=== PATIENT | male | born 1985 | race Hispanic/Latino ===

== ENCOUNTER 2017-10-10 18:49 | Emergency (ER) | payer SELFPAY ==
--- NOTE | 2017-10-10 19:35 | RAD ---
AP VIEW OF THE CHEST: 10/10/17 INDICATION: Cough and chest pain. FINDINGS: The lungs are clear. The cardiomediastinal silhouette is within normal limits. No acute osseous abnor mality is evident. IMPRESSION: No acute cardiopulmonary process. POS: [facility]
[2017-10-10] MEDS ORDERED: Nitroglycerin 0.4 MG TAB (25 Tab Bottle) ONE (19:52)
[2017-10-10 20:09] LABS: #Eosinphils 0.2 thou/uL (0.0-0.7); #Monocytes 0.7 thou/uL (0.11-0.59); #Neutrophils 6.6 thou/uL (1.40-6.50); %Basophils 0.3 % (0.0-1.0); %Eosinophils 1.5 % (0.0-10.0); %Lymphocytes 28.4 % (21.0-51.0); %Monocytes 6.8 % (0.0-10.0); Mean Corpuscular HGB CONC 34.4 g/dL (32.0-36.0); Mean Corpuscular Hemoglobin 27.9 pg (27.0-31.0); Mean Corpuscular Volume 81.3 fl (80.0-94.0); Mean Platelet Volume 7.3 fL (7.4-10.4); Platelet Count 266 thou/uL (130-400); RBC Distribution Width 12.7 % (11.5-14.5); Red Blood Cell (RBC) Count 5.72 mill/uL (4.70-6.10); White Blood Cell (WBC) Count 10.5 thou/uL (4.8-10.8)
[2017-10-10] MEDS ORDERED: Ketorolac Tromethamine 30 MG/ML VIAL ONE (20:10)
[2017-10-10 20:24] LABS: ALT (SGPT) 42 U/L (8-55); AST (SGOT) 19 U/L (5-34); Albumin 4.4 g/dL (3.5-5.0); Alkaline Phosphatase 67 U/L (40-150); Anion Gap 12 mmol/L (10-20); BUN (Urea Nitrogen) 15 mg/dL (8.9-20.6); Bilirubin, Total 0.2 mg/dL (0.2-1.2); CK (CPK) 186 U/L (30-200); Calc. Creatinine Clearance 0 mL/min (70-130); Calcium 9.5 mg/dL (7.8-10.44); Carbon Dioxide 26 mmol/L (22-29); Chloride 104 mmol/L (98-107); Estimated GFR-MDRD Greater than 90; Globulin 3.3 g/dL (2.4-3.5); Glucose 105 mg/dL (70-105); Potassium 4.1 mmol/L (3.5-5.1); Protein, Total 7.7 g/dL (6.0-8.3); Sodium 138 mmol/L (136-145)
[2017-10-10 20:28] LABS: CKMB 2.2 ng/mL (0-6.6); Troponin I Less than 0.010 ng/mL (< 0.028)
== END 2017-10-10 21:57 | disposition home or self-care (01) ==
LOC: ERS 18:49
DX: R07.81 Pleurodynia (principal); F17.210 Nicotine dependence, cigarettes, uncomplicated
CPT/HCPCS: 71045; 80053; 82553; 83880; 84484; 85025; 85379; 93005; 96361; 96374; J1885

== ENCOUNTER 2018-06-21 10:49 | Emergency (ER) | payer SELFPAY | END 2018-06-21 13:00 | disposition home or self-care (01) | LOC: ERS 10:49 | DX: B34.9 Viral infection, unspecified (principal); F17.210 Nicotine dependence, cigarettes, uncomplicated | CPT/HCPCS: 87081; 87430; 87804; 99283 ==

== ENCOUNTER 2019-04-03 06:51 | Emergency (ER) | payer SELFPAY ==
[2019-04-03] MEDS ORDERED: Dexamethasone 10 MG/ML VIAL ONE (07:37)
== END 2019-04-03 08:44 | disposition home or self-care (01) ==
LOC: ERS 06:51
DX: J32.9 Chronic sinusitis, unspecified (principal); H66.92 Otitis media, unspecified, left ear; F17.210 Nicotine dependence, cigarettes, uncomplicated
CPT/HCPCS: 99283; J1100

== ENCOUNTER 2020-03-04 09:17 | Emergency (ER) | payer SELFPAY ==
[2020-03-04] MEDS ORDERED: Boostrix 0.5 ML VIAL ONE (09:33)
[2020-03-04] MEDS ORDERED: Bupivacaine 0.5% 10 ML VIAL ONE (09:34)
[2020-03-04] MEDS ORDERED: Bacitracin 1 PK ONE (10:06)
[2020-03-04] MEDS ORDERED: Lidocaine 1% PF 5 ML VIAL ONE (10:06)
--- NOTE | 2020-03-04 10:09 | RAD ---
Exam: XR Finger(s) Lt Min 2 View HISTORY: Injury to left thumb. Patient cut left thumb with knife. COMPARISON: None FINDINGS: No acute fracture, dislocation, or other acute osseous abnormality is identified. There is slight irr egularity along the volar aspect of the distal phalanx of the thumb which may be developmental in origin. There is soft tissue irregularity related to laceration involving the distal aspect of the thumb soft tissues. No radiopaque foreign body is seen. IMPRESSION: Laceration involving the distal aspect of the thumb soft tissues without evidence of a fracture.
[2020-03-04] MEDS ORDERED: Sulfameth/Trimethoprim DS 800-160mg TAB ONE (10:41)
== END 2020-03-04 11:08 | disposition home or self-care (01) ==
LOC: ERS 09:17
DX: S61.012A Laceration without foreign body of left thumb without damage to nail, initial encounter (principal); F17.210 Nicotine dependence, cigarettes, uncomplicated; W26.0XXA Contact with knife, initial encounter
CPT/HCPCS: 12002; 90471; 90715; J3490

== ENCOUNTER 2022-03-13 10:02 | Emergency (ER) | payer OTHER, SELFPAY ==
[2022-03-13] MEDS ORDERED: Acetaminophen 500 MG TAB ONE (13:04)
[2022-03-13] MEDS ORDERED: Ibuprofen 800 MG TAB ONE (13:04)
== END 2022-03-13 14:30 | disposition home or self-care (01) ==
LOC: ERS 10:02
DX: S62.616A Displaced fracture of proximal phalanx of right little finger, initial encounter for closed fracture (principal); S80.02XA Contusion of left knee, initial encounter; S50.311A Abrasion of right elbow, initial encounter; M25.511 Pain in right shoulder; F17.210 Nicotine dependence, cigarettes, uncomplicated; W01.0XXA Fall on same level from slipping, tripping and stumbling without subsequent striking against object, initial encounter
CPT/HCPCS: 29125

== ENCOUNTER 2022-05-02 06:19 | Emergency (ER) | payer SELFPAY | END 2022-05-02 07:15 | disposition home or self-care (01) | LOC: ERS 06:19 | DX: B34.9 Viral infection, unspecified (principal); H66.93 Otitis media, unspecified, bilateral | CPT/HCPCS: 99282 ==

== ENCOUNTER 2023-03-03 13:04 | Emergency (ER) | payer SELFPAY ==
[2023-03-03] MEDS ORDERED: Bicillin LA 1.2 MILLION UNITS/2 ML SYRINGE ONE (14:55)
[2023-03-03] MEDS ORDERED: Ketorolac Tromethamine 30 MG/ML VIAL ONE ×2 (14:55→15:01)
[2023-03-03] MEDS ORDERED: Dexamethasone 4 mg/ml Vial ONE (14:57)
[2023-03-03] MEDS ORDERED: Acetaminophen 500 MG TAB ONE (15:13)
[2023-03-03 15:21] LABS: SARS-CoV-2 NAA Rapid Test Not Detected (NotDetected)
== END 2023-03-03 15:17 | disposition home or self-care (01) ==
LOC: ERS 13:04
DX: J02.0 Streptococcal pharyngitis (principal); F17.210 Nicotine dependence, cigarettes, uncomplicated; Z20.822 Contact with and (suspected) exposure to COVID-19
CPT/HCPCS: 96372; 99283; J0561; J1100; J1885